=== PATIENT | female | born 1945 | race Caucasian/White ===

== ENCOUNTER 2022-10-29 11:07 | Outpatient (AMB) | payer MEDICARE, SELFPAY ==
--- NOTE | 2022-10-29 11:26 | MHC.OFFVIS ---
Intake Vital Signs 10/29/22 11:32 Height 4 ft 11 in Weight 152 lb 2 oz BMI 30.7 BP 120/62 Blood Pressure Location Rt brachial Position Sitting Pulse 56 Pulse Source Pulse Oximeter Pulse Oximetry (%) 96 Oxygen Delivery Method Room Air Intake Visit Reasons: [id number] Intake Note: NPV for Dementia Care Program Resident Required: No Allergies celecoxib [From Celebrex] Allergy (Severe, Verified 10/29/22 11:26) Rash codeine Allergy (Severe, Verified 10/29/22 11:26) sternal pain hydromorphone [From Dilaudid] Allergy (Severe, Verified 10/29/22 11:26) Hallucinations Medication List - Last Reconciled 10/29/22 by Angie Eden MD allopurinol 300 mg PO DAILY atenolol 50 mg PO DAILY colestipol 2 grams PO DAILY donepezil 10 mg PO BEDTIME furosemide 20 mg PO DAILY losartan 50 mg PO DAILY memantine 5 mg PO BID memantine (Namenda XR) 14 mg PO DAILY metformin 0 mg PO sertraline 25 mg PO DAILY simvastatin 20 mg PO BEDTIME vitamin B complex (B Complex-Vitamin B12 tablet) 1 tab PO DAILY HPI HPI Comments History of Present Illness Details 77y/o female comes for evaluation of cognitive disorder.She is accompanied by ehr who helps with history . ABout 1 year ago her family started noticing short term memory problems. she often repeats herself, confused with dates , always looking for her stuff in her house, misplacing.she is independent in all her ADLs. Her memory is worsening progressively.Her driving is OK. SHe denies any mood disorder, sleep issues. she had a fall 2 months ago in the backyard - no loss of consciousness. she is doing OK . she goes to nondenominational everyday, does grocery shopping, takes acre of the house etc. [facility] Medical History (Updated 10/29/22 @ 12:48 by Angie Eden MD) Arthritis B12 deficiency Cognitive disorder Constipation Diabetes Gout HTN (hypertension) Hyperlipidemia Hypokalemia LBBB (left bundle branch block) Surgical History (Updated 10/21/22 @ 13:47 by KAYE Mae) H/O section H/O shoulder replacement H/O: hysterectomy History of colonoscopy History of knee replacement Hx of cholecystectomy Family History (Updated 10/21/22 @ 13:41 by KAYE Mae) Mother Cognitive deficit as late effect of cerebrovascular accident (CVA) Father Diabetes Social History (Updated 10/29/22 @ 11:32 by Ghislaine Rivera [facility]) Alcohol intake: current Patient Tobacco Use Status: Former Tobacco user Review of Systems Const Reports no additional complaints Neuro Reports memory loss Psych Reports memory loss Physical Exam Const General: cooperative and healthy appearing Nutritional Appearance: overweight Eyes Pupils: Equal, round and reactive pupils present Neuro General: tone normal, moves all extremities and no focal motor deficits Cranial nerves: Yes Facial sensation intact/muscles of mastication intact, Yes Equal, round and reactive pupils present, Yes Bilaterally intact EOM present, Yes Nystagmus not present, Yes Normal facial strength present, Yes Midline tongue present and Yes Symmetric palate elevation present Gait exam (Neuro): Antalgic gait present Motor exam (neuro): 5/5 motor strength present throughout and Normal motor muscle tone present throughout Deep tendon reflexes (DTR's): Right triceps reflex intensity grade: 1+, Left triceps reflex intensity grade: 1+, Rt Biceps (C5, C6): 1+, Left biceps reflex intensity grade: 1+, Right brachioradialis reflex intensity grade: 1+, Left brachioradialis reflex intensity grade: 1+, Right patellar reflex intensity grade: 1+ and Left patellar reflex intensity grade: 1+ Coordination: [id number] test normal Orientation What is the (year) (season) (date) (day) (month)?: season, day and month Where are we (state) (county) (town or city) (hospital) (floor)?: state, county, town or city and hospital/clinic Registration Name of 3 unrelated objects clearly and slowly, then ask patient to repeat all 3 of them. (1st repeat determines score. Make sure they can repeat all three): object 1, object 2 and object 3 Attention & Calculation (CHOOSE ONE) Spell WORLD backwards (DLROW): 5 letters Recall Ask patient to repeat the 3 items from question #3.: object 1 and object 2 Language Show patient a wristwatch & ask what it is. Repeat for pencil.: watch and pencil Ask the patient to repeat the phrase 'No ifs, ands, or buts' after you.: correct Ask the patient to 'take a piece of paper with their right hand' 'fold paper in half' 'place paper on floor': take paper in right hand, fold paper in half and place paper on floor Print the sentence 'CLOSE YOUR EYES' on a piece. If patient actually closes eyes then score.: followed written direction Give patient a blank piece of paper & ask to write a sentence. Score if it contains a noun & verb.: sentence contains subject and verb Ask patient to copy figure of intersecting pentagons exactly. Score if all 10 angles & 2 intersects are included.: all 10 angles present & 2 are intersected Score Score: 26 Assessment & Plan Assessment & Plan (1) Cognitive disorder: Comment: Mild cognitive impairment vs Dementia Code(s): F09 - Unspecified mental disorder due to known physiological condition Plan Reviewed MRI report Continue aricept 10mg qd Switch to memantine XR 14 mg qd Increase exercise and cognitive activity Medications: New memantine (Namenda XR) 14 mg PO DAILY 30 ea 2RF Coding Level of Care Code New Pt Level 4 (00698) Diagnoses Cognitive disorder F09
[2022-10-29 11:32] VITALS: BP 120/62; PULSE 56; O2SAT 96; BMI 30.7
== END 2022-10-29 12:09 | disposition home or self-care (01) ==
PROVIDERS: Visit Provider Psychiatry & Neurology Neurology
DX: G31.84 Mild cognitive impairment of uncertain or unknown etiology (principal)
CPT/HCPCS: 99204

== ENCOUNTER → 2022-10-29 11:07 | Outpatient (BNVA) | payer MEDICARE, SELFPAY | PROVIDERS: Visit Provider Psychiatry & Neurology Neurology | DX: F09 Unspecified mental disorder due to known physiological condition (principal) | CPT/HCPCS: 99202 ==

== ENCOUNTER 2023-02-09 10:56 | Outpatient (AMB) | payer MEDICARE, SELFPAY ==
--- NOTE | 2023-02-09 11:04 | A.OFFVIS_ITS ---
Intake Vital Signs 02/09/23 11:05 Height 4 ft 11 in Weight 155 lb BMI 31.3 BP 146/72 H Blood Pressure Location Rt brachial Position Sitting Respiration 17 Pulse 75 Pulse Source Pulse Oximeter Pulse Oximetry (%) 96 Oxygen Delivery Method Room Air Intake Visit Reasons: 3m follow up DEMENTIA/Confirmed Intake Note: Pt presents for a 3 month follow up for dementia. Assistant Buyer Required: No Allergies celecoxib [From Celebrex] Allergy (Severe, Verified 02/09/23 11:05) Rash codeine Allergy (Severe, Verified 02/09/23 11:05) sternal pain hydromorphone [From Dilaudid] Allergy (Severe, Verified 02/09/23 11:05) Hallucinations Medication List - Last Reconciled 02/09/23 by Angie Eden MD allopurinol 300 mg PO DAILY atenolol 50 mg PO DAILY colestipol 2 grams PO DAILY donepezil 10 mg PO BEDTIME losartan 50 mg PO DAILY memantine 10 mg PO BID 90 days metformin 0 mg PO sertraline 25 mg PO DAILY simvastatin 20 mg PO BEDTIME vitamin B complex (B Complex-Vitamin B12 tablet) 1 tab PO DAILY [facility] Medical History (Updated 02/09/23 @ 11:29 by Angie Eden MD) Alzheimer's dementia Cognitive disorder Hypokalemia LBBB (left bundle branch block) Arthritis Hyperlipidemia HTN (hypertension) Gout Diabetes Constipation B12 deficiency Surgical History H/O shoulder replacement H/O section Hx of cholecystectomy History of knee replacement H/O: hysterectomy History of colonoscopy Family History Mother Cognitive deficit as late effect of cerebrovascular accident (CVA) Father Diabetes Alcohol intake: current Patient Tobacco Use Status: Former Tobacco user Physical Exam Vital Signs: Last Vital Signs Pulse 75 02/09/23 11:05 Resp 17 02/09/23 11:05 BP 146/72 H 02/09/23 11:05 Pulse Ox 96 02/09/23 11:05 Oxygen Delivery Method Room Air 02/09/23 11:05 BMI result Body Mass Index 31.3 Const General: cooperative and healthy appearing Nutritional Appearance: overweight Eyes Pupils: Equal, round and reactive pupils present Neuro General: tone normal, moves all extremities and no focal motor deficits Cranial nerves: Yes Facial sensation intact/muscles of mastication intact, Yes Equal, round and reactive pupils present, Yes Bilaterally intact EOM present, Yes Nystagmus not present, Yes Normal facial strength present, Yes Midline tongue present and Yes Symmetric palate elevation present Gait exam (Neuro): Antalgic gait present Motor exam (neuro): 5/5 motor strength present throughout and Normal motor muscle tone present throughout Coordination: [id number] test normal Orientation What is the (year) (season) (date) (day) (month)?: season and month Where are we (state) (county) (town or city) (hospital) (floor)?: state, town or city, hospital/clinic and floor Registration Name of 3 unrelated objects clearly and slowly, then ask patient to repeat all 3 of them. (1st repeat determines score. Make sure they can repeat all three): object 1, object 2 and object 3 Attention & Calculation (CHOOSE ONE) Spell WORLD backwards (DLROW): 4 letters Language Show patient a wristwatch & ask what it is. Repeat for pencil.: watch and pencil Ask the patient to repeat the phrase 'No ifs, ands, or buts' after you.: correct Ask the patient to 'take a piece of paper with their right hand' 'fold paper in half' 'place paper on floor': take paper in right hand, fold paper in half and place paper on floor Print the sentence 'CLOSE YOUR EYES' on a piece. If patient actually closes eyes then score.: followed written direction Give patient a blank piece of paper & ask to write a sentence. Score if it contains a noun & verb.: sentence contains subject and verb Ask patient to copy figure of intersecting pentagons exactly. Score if all 10 angles & 2 intersects are included.: all 10 angles present & 2 are intersected Score Score: 22 Assessment & Plan Assessment & Plan (1) Alzheimer's dementia: Code(s): G30.9 - Alzheimer's disease, unspecified; F02.80 - Dementia in other diseases classified elsewhere, unspecified severity, without behavioral disturbance, psychotic disturbance, mood disturbance, and anxiety Plan Continue aricept 10mg qd Continue Memantine 10mg bid Increase exercise and cognitive activity Amyloid PET ? Consider [facility] Coding Level of Care Code Est Pt Level 4 (44088) Diagnoses Alzheimer's dementia G30.9; F02.80
[2023-02-09 11:05] VITALS: BP 146/72; PULSE 75; RESP 17; O2SAT 96; BMI 31.3
== END 2023-02-09 11:40 | disposition home or self-care (01) ==
PROVIDERS: PCP Family Medicine; Visit Provider Psychiatry & Neurology Neurology
DX: G30.9 Alzheimer's disease, unspecified (principal); F02.80 Dementia in other diseases classified elsewhere, unspecified severity, without behavioral disturbance, psychotic disturbance, mood disturbance, and anxiety
CPT/HCPCS: 99214

== ENCOUNTER → 2023-02-09 10:56 | Outpatient (BNVA) | payer MEDICARE, SELFPAY | PROVIDERS: PCP Family Medicine; Visit Provider Psychiatry & Neurology Neurology | DX: G30.9 Alzheimer's disease, unspecified (principal); F02.80 Dementia in other diseases classified elsewhere, unspecified severity, without behavioral disturbance, psychotic disturbance, mood disturbance, and anxiety | CPT/HCPCS: 99212 ==

== ENCOUNTER 2023-06-10 07:35 | Outpatient (AMB) | payer MEDICARE, SELFPAY ==
--- NOTE | 2023-06-10 07:37 | A.OFFVIS_ITS ---
Intake Vital Signs 06/10/23 07:38 Height 4 ft 11 in Weight 150 lb BMI 30.3 BP 128/68 Blood Pressure Location Rt brachial Position Sitting Respiration 16 Pulse 59 Pulse Source Pulse Oximeter Pulse Oximetry (%) 99 Oxygen Delivery Method Room Air Intake Visit Reasons: 4 mo f/u -Dementia-Conf Intake Note: Pt presents to the office for a 4 month follow up for Alzheimer's/ dementia. Coping Machine Operator Required: No Allergies celecoxib [From Celebrex] Allergy (Severe, Verified 06/10/23 07:37) Rash codeine Allergy (Severe, Verified 06/10/23 07:37) sternal pain hydromorphone [From Dilaudid] Allergy (Severe, Verified 06/10/23 07:37) Hallucinations HPI HPI Comments History of Present Illness Details 77y/o female comes for evaluation of cog nitive disorder.She is accompanied by her who helps with history .No major change since her last visit. ABout 18 months ago her family started noticing short term memory problems. she often repeats herself, confused with dates , always looking for her stuff in her house, misplacing.she is independent in all her ADLs. Her memory is worsening progressively.Her driving is OK. SHe denies any mood disorder, sleep issues.No falls. she goes to [employer] everyday, does grocery shopping, takes care of the house etc. [facility], [facility] Medical History Alzheimer's dementia Cognitive disorder Hypokalemia LBBB (left bundle branch block) Arthritis Hyperlipidemia HTN (hypertension) Gout Diabetes Constipation B12 deficiency Surgical History H/O shoulder replacement H/O section Hx of cholecystectomy History of knee replacement H/O: hysterectomy History of colonoscopy Family History Mother Cognitive deficit as late effect of cerebrovascular accident (CVA) Father Diabetes Social History Alcohol intake: current Patient Tobacco Use Status: Former Tobacco user Physical Exam Vital Signs: Last Vital Signs Pulse 59 06/10/23 07:38 Resp 16 06/10/23 07:38 BP 128/68 06/10/23 07:38 Pulse Ox 99 06/10/23 07:38 Oxygen Delivery Method Room Air 06/10/23 07:38 BMI result Body Mass Index 30.3 Const General: cooperative and healthy appearing Nutritional Appearance: overweight Eyes Pupils: Equal, round and reactive pupils present Neuro General: tone normal, moves all extremities and no focal motor deficits Cranial nerves: Yes Facial sensation intact/muscles of mastication intact, Yes Equal, round and reactive pupils present, Yes Bilaterally intact EOM present, Yes Nystagmus not present, Yes Normal facial strength present, Yes Midline tongue present and Yes Symmetric palate elevation present Gait exam (Neuro): Antalgic gait present Motor exam (neuro): 5/5 motor strength present throughout and Normal motor muscle tone present throughout Coordination: [id number] test normal Orientation What is the (year) (season) (date) (day) (month)?: year and season Where are we (state) (county) (town or city) (hospital) (floor)?: state, county, town or city, hospital/clinic and floor Registration Name of 3 unrelated objects clearly and slowly, then ask patient to repeat all 3 of them. (1st repeat determines score. Make sure they can repeat all three): object 1, object 2 and object 3 Attention & Calculation (CHOOSE ONE) Spell WORLD backwards (DLROW): 4 letters Recall Ask patient to repeat the 3 items from question #3.: object 1 and object 2 Language Show patient a wristwatch & ask what it is. Repeat for pencil.: watch and pencil Ask the patient to repeat the phrase 'No ifs, ands, or buts' after you.: correct Ask the patient to 'take a piece of paper with their right hand' 'fold paper in half' 'place paper on floor': take paper in right hand, fold paper in half and place paper on floor Print the sentence 'CLOSE YOUR EYES' on a piece. If patient actually closes eyes then score.: followed written direction Ask patient to copy figure of intersecting pentagons exactly. Score if all 10 angles & 2 intersects are included.: all 10 angles present & 2 are intersected Score Score: 24 Assessment & Plan Assessment & Plan (1) Alzheimer's dementia: Code(s): G30.9 - Alzheimer's disease, unspecified; F02.80 - Dementia in other diseases classified elsewhere, unspecified severity, without behavioral disturbance, psychotic disturbance, mood disturbance, and anxiety Plan Continue aricept 10mg qd Continue Memantine 10mg bid Increase exercise and cognitive activity Amyloid PET ? Consider [facility] Medications: New donepezil 10 mg PO BEDTIME 90 tabs 6RF sertraline 25 mg PO DAILY 90 tabs 6RF Refilled memantine 10 mg PO BID 90 days 180 tabs 6RF Coding Level of Care Code Est Pt Level 4 (39911) Diagnoses Alzheimer's dementia G30.9; F02.80
[2023-06-10 07:38] VITALS: BP 128/68; PULSE 59; RESP 16; O2SAT 99; BMI 30.3
== END 2023-06-10 08:07 | disposition home or self-care (01) ==
PROVIDERS: PCP Family Medicine; Visit Provider Psychiatry & Neurology Neurology
DX: G30.9 Alzheimer's disease, unspecified (principal); F02.80 Dementia in other diseases classified elsewhere, unspecified severity, without behavioral disturbance, psychotic disturbance, mood disturbance, and anxiety
CPT/HCPCS: 99214

== ENCOUNTER → 2023-06-10 07:35 | Outpatient (BNVA) | payer MEDICARE, SELFPAY | PROVIDERS: PCP Family Medicine; Visit Provider Psychiatry & Neurology Neurology | DX: G30.9 Alzheimer's disease, unspecified (principal); F02.80 Dementia in other diseases classified elsewhere, unspecified severity, without behavioral disturbance, psychotic disturbance, mood disturbance, and anxiety | CPT/HCPCS: 99212 ==

== ENCOUNTER 2023-09-27 05:48 | Day surgery (SDC) | payer MEDICARE, SELFPAY ==
[2023-09-22 08:21] VITALS: BMI 29.4
[2023-09-27 06:08] VITALS: BP 155/43; PULSE 51; RESP 16; TEMP 36.4; O2SAT 97
[2023-09-27 06:14] LABS: Glucose, Whole Blood 94 mg/dL (60-115)
[2023-09-27] MEDS: Tetracaine HCl/PF 0.5% Oph Sol 4 ML DROPS 1 DROP EYE-LEFT (06:14)
[2023-09-27] MEDS: Cyclopentolate 1 % Ophth Sol 2 ML DRPBTL 1 DROP EYE-LEFT ×3 (06:15→06:27)
[2023-09-27] MEDS: Tropicamide 1 % Ophth Sol 3 ML BTL 1 DROP EYE-LEFT ×3 (06:17→06:29)
[2023-09-27] MEDS: Phenylephrine HCL 2.5% Oph SoL 2 ML BOTTLE 1 DROP EYE-LEFT ×3 (06:19→06:31)
[2023-09-27] MEDS: Lactated Ringers 500 ML 50 ML IV (06:38)
[2023-09-27] MEDS: Ketorolac Tromethamine 0.5% Op 10 ML DROPS 1 DROP EYE-LEFT ×3 (07:11→07:15)
--- NOTE | 2023-09-27 07:15 | HO.ANESPROP2 ---
Documented by User: Jessica Bella NP 09/24/23 12:10 HPI - Anesthesia Eval Consult details Narrative: 78yo F for Left Cataract Extraction IOL Insertion No previous cataract on record PMFSH Active Problems Active Problems: All Active Problems Alzheimer's dementia (Acute) Cognitive disorder (Acute) LBBB (left bundle branch block) (Acute) Arthritis (Acute) Hyperlipidemia (Acute) HTN (hypertension) (Acute) Gout (Acute) Diabetes (Acute) Constipation (Acute) B12 deficiency (Acute) Past Medical History Medical History (Updated 09/22/23 @ 08:19 by Darlene Freed RN) Weight loss Shoulder pain Pain in thoracic spine Osteoarthritis Leg pain, left Depression Iron deficiency anemia Hypercholesteremia COVID-19 Hx of fracture Edema of right lower leg Dementia Anemia Alzheimer's dementia Cognitive disorder Hypokalemia LBBB (left bundle branch block) Arthritis Hyperlipidemia HTN (hypertension) Gout Diabetes Constipation B12 deficiency Family History Family History Mother Cognitive deficit as late effect of cerebrovascular accident (CVA) Father Diabetes Surgical History Surgical History H/O shoulder replacement H/O section Hx of cholecystectomy History of knee replacement H/O: hysterectomy History of colonoscopy Social History Social History Are you a primary wound care center consultant to a significant other at home: No Do you presently have visiting nurse or other home services: No Alcohol intake: current Alcohol intake frequency: holidays/special occasions only Patient Tobacco Use Status: Former Tobacco user Use of substances other than those prescribed or required for medical reasons: No Advance Directives: No Advance Directives Information Provided: Yes Advance Directives on File: No Nutrition Risks: No Nutritional Risk Patient : No : No Meds Allergies Allergy/AdvReac Type Severity Reaction Status Date / Time celecoxib [From Celebrex] Allergy Severe Rash, Verified 09/27/23 06:40 throat closed codeine Allergy Severe sternal Verified 09/27/23 06:08 pain hydromorphone [From Dilaudid] Allergy Severe Hallucinati Verified 09/27/23 06:08 ons latex Allergy Severe Rash Verified 09/27/23 06:08 Home Medications ?Medication ?Instructions ?Recorded ?Confirmed ?Last Taken ?Type allopurinol 300 mg tablet 300 mg PO DAILY 10/29/22 09/22/23 09/27/23 History atenolol 50 mg tablet 50 mg PO DAILY 10/29/22 09/22/23 09/27/23 History losartan 50 mg tablet 50 mg PO DAILY 10/29/22 09/22/23 Unknown History metformin 500 mg tablet 0 mg PO 10/29/22 02/09/23 Unknown History simvastatin 20 mg tablet 20 mg PO BEDTIME 10/29/22 09/22/23 Unknown History aspirin 81 mg tablet,delayed 81 mg PO DAILY 09/22/23 09/22/23 09/27/23 History release cetirizine 10 mg tablet (Zyrtec) 10 mg PO DAILY 09/22/23 09/22/23 Unknown History cyanocobalamin (vitamin B-12) 1,000 mcg PO DAILY 09/22/23 09/22/23 Unknown History 1,000 mcg tablet (Vitamin B-12) loperamide 2 mg-simethicone 125 mg 1 tab PO Q6-8H PRN Diarrhea 09/22/23 09/22/23 Unknown History tablet (Imodium Multi-Symptom Relief) memantine 10 mg tablet 10 mg PO DAILY 09/22/23 09/22/23 09/27/23 History Exam Height,Weight and Vital Signs: Height 4 ft 11.96 in Weight 68.1 kg Assessment and Plan Assessment Anesthesia Assessment: Chart Reviewed Documented by User: Tiara Romero DO 09/27/23 07:16 [facility] Past Medical History Medical History (Updated 09/22/23 @ 08:19 by Darlene Freed RN) Weight loss Shoulder pain Pain in thoracic spine Osteoarthritis Leg pain, left Depression Iron deficiency anemia Hypercholesteremia COVID-19 Hx of fracture Edema of right lower leg Dementia Anemia Alzheimer's dementia Cognitive disorder Hypokalemia LBBB (left bundle branch block) Arthritis Hyperlipidemia HTN (hypertension) Gout Diabetes Constipation B12 deficiency Family History Family History Mother Cognitive deficit as late effect of cerebrovascular accident (CVA) Father Diabetes Family history of problems with anesthesia: No Surgical History Surgical History H/O shoulder replacement H/O section Hx of cholecystectomy History of knee replacement H/O: hysterectomy History of colonoscopy History of Problems with Anesthesia: No Social History Social History Are you a primary wound care center consultant to a significant other at home: No Do you presently have visiting nurse or other home services: No Alcohol intake: current Alcohol intake frequency: holidays/special occasions only Patient Tobacco Use Status: Former Tobacco user Use of substances other than those prescribed or required for medical reasons: No Advance Directives: No Advance Directives Information Provided: Yes Advance Directives on File: No Nutrition Risks: No Nutritional Risk Patient : No : No Meds Allergies Allergy/AdvReac Type Severity Reaction Status Date / Time celecoxib [From Celebrex] Allergy Severe Rash, Verified 09/27/23 06:40 throat closed codeine Allergy Severe sternal Verified 09/27/23 06:08 pain hydromorphone [From Dilaudid] Allergy Severe Hallucinati Verified 09/27/23 06:08 ons latex Allergy Severe Rash Verified 09/27/23 06:08 Home Medications ?Medication ?Instructions ?Recorded ?Confirmed ?Last Taken ?Type allopurinol 300 mg tablet 300 mg PO DAILY 10/29/22 09/22/23 09/27/23 History atenolol 50 mg tablet 50 mg PO DAILY 10/29/22 09/22/23 09/27/23 History losartan 50 mg tablet 50 mg PO DAILY 10/29/22 09/22/23 Unknown History metformin 500 mg tablet 0 mg PO 10/29/22 02/09/23 Unknown History simvastatin 20 mg tablet 20 mg PO BEDTIME 10/29/22 09/22/23 Unknown History aspirin 81 mg tablet,delayed 81 mg PO DAILY 09/22/23 09/22/23 09/27/23 History release cetirizine 10 mg tablet (Zyrtec) 10 mg PO DAILY 09/22/23 09/22/23 Unknown History cyanocobalamin (vitamin B-12) 1,000 mcg PO DAILY 09/22/23 09/22/23 Unknown History 1,000 mcg tablet (Vitamin B-12) loperamide 2 mg-simethicone 125 mg 1 tab PO Q6-8H PRN Diarrhea 09/22/23 09/22/23 Unknown History tablet (Imodium Multi-Symptom Relief) memantine 10 mg tablet 10 mg PO DAILY 09/22/23 09/22/23 09/27/23 History Exam Exam Date and Time: September 27, 2023711 Height,Weight and Vital Signs: Height 4 ft 11.96 in Weight 68.1 kg Vital Signs Temperature 97.5 F 09/27/23 06:08 Pulse Rate 51 09/27/23 06:08 Respiratory Rate 16 09/27/23 06:08 Blood Pressure 155/43 H 09/27/23 06:08 Pulse Oximetry 97 09/27/23 06:08 Oxygen Delivery Method Room Air 09/27/23 06:08 Temperature 97.5 F 09/27/23 06:08 Pulse Rate 51 09/27/23 06:08 Respiratory Rate 16 09/27/23 06:08 Blood Pressure 155/43 H 09/27/23 06:08 Pulse Oximetry 97 09/27/23 06:08 Oxygen Delivery Method Room Air 09/27/23 06:08 Airway Mallampati Class: I TM Dist: >3cm Neck ROM: Full Loose/Missing/Broken Teeth: Yes (several missing teeth but patient denies any loose or broken teeth) Heart: S1S2 Lungs: CTAB Assessment and Plan Assessment Anesthesia Assessment: Anesthesia Plan Discussed and Chart Reviewed Final Anesthetic Review Family History of Problems with Anesthesia: No History of Problems with Anesthesia: No NPO: Yes ASA Class: III Final Preanesthetic Review: No Changes in Pt Med Stat, Meds/Allgs Chart Reviewed, Consent Obtained/Reviewed and Anes Risks/Benef Reviewed Patient Risk: Intermediate Procedure Risk: Low Anesthetic Plan Anesthetic Plan: MAC: and Agree w/ Assess. and Plan Disposition: Standard PACU
--- NOTE | 2023-09-27 07:30 | MHC.SHP ---
Pre-Procedural Eval Section A - 24 Hr Update-Section A only Date of Service: 09/27/23 The patient is an INPATIENT: No Changes since office visit: No Cold of Flu in the past 2 weeks, No New Medical Problems, No Changes in Medication and No Patient answered all questions The patient has been examined within 24 hours of the surgical procedure. The History & Physical has been completed within 30 days and I have reviewed it.: Yes Section B - Complete if H&P > 30 days Chief Complaint: Age-related nuclear cataract, left eye Allergies: Allergies Allergy/AdvReac Type Severity Reaction Status Date / Time celecoxib [From Celebrex] Allergy Severe Rash, Verified 09/27/23 06:40 throat closed codeine Allergy Severe sternal Verified 09/27/23 06:08 pain hydromorphone [From Dilaudid] Allergy Severe Hallucinati Verified 09/27/23 06:08 ons latex Allergy Severe Rash Verified 09/27/23 06:08 Plan Diagnosis/Plan: Unchanged I have reviewed the history and physical and performed a pertinent physical examination on my patient. No changes have occurred unless specified. Time Spent With Patient Time: Total time managing care of this patient today ____ minutes.
--- NOTE | 2023-09-27 07:31 | HO.PNOPHT ---
Ophthalmology Procedure Procedure Date of Service: 09/27/23 Ophthalmology Viscoelastic: Healon Duet Dual Pack Pro Ophthalmology Lenses: IOL Acrysof MP - MA60AC (17.5) Procedure Notes: PREOPERATIVE DIAGNOSIS: Decreased visual acuity left eye secondary to cataract POSTOPERATIVE DIAGNOSIS: Same PROCEDURE: Left cataract extraction with intraocular lens insertion SURGEON: Chadwick Johnson M.D. ANESTHESIA: Topical/MAC ESTIMATED BLOOD LOSS: None COMPLICATIONS: None After obtaining informed consent, the patient was brought to the operation room suite and placed in the supine position. After adequate sedation per anesthesia, topical drops of Tetracaine were given to the left eye. The eye was then prepped and draped in the usual sterile fashion. The operating room microscope was then positioned over the operative eye and a lid speculum placed. A paracentesis was created. Viscoelastic was then instilled into the anterior chamber. A three plane incision was then created temporally, utilizing a 2.85 mm keratome. Capsulotomy forceps were then utilized to create a circular tear capsulotomy. Hydrodissection and hydrodelineation were carried out until adequate mobilization of the nucleus occurred. Phacoemulsification was then utilized to remove the dense central nucleus followed by removal of the cortical material utilizing the automated aspiration irrigation unit. Viscoat elastic was instilled into the posterior capsular bag followed by placement of a posterior chamber intraocular lens without difficulty. The residual Viscoat elastic was then removed utilizing the automated IA machine. The wound was check and found to be watertight. The patient tolerated the procedure well and the lid speculum was removed. Intracameral injection of Vigamox 0.1 mL followed by a subtenon injection of Kenalog-40 0.2 mL were administered. The patient will be seen in the a.m.
[2023-09-27 08:00] VITALS: BP 126/42; PULSE 42; RESP 16; TEMP 36.1; O2SAT 97
== END 2023-09-27 08:47 | disposition home or self-care (01) ==
PROVIDERS: PCP Family Medicine; Visit Provider Ophthalmology
PROC: (CPT 66985; principal; 2023-09-27 07:30)
DX: H25.12 Age-related nuclear cataract, left eye (principal); H54.7 Unspecified visual loss; H40.013 Open angle with borderline findings, low risk, bilateral; H18.413 Arcus senilis, bilateral; E11.9 Type 2 diabetes mellitus without complications; I10 Essential (primary) hypertension; I78.1 Nevus, non-neoplastic; E78.00 Pure hypercholesterolemia, unspecified; M10.9 Gout, unspecified; G30.9 Alzheimer's disease, unspecified; F02.80 Dementia in other diseases classified elsewhere, unspecified severity, without behavioral disturbance, psychotic disturbance, mood disturbance, and anxiety; D50.9 Iron deficiency anemia, unspecified; D51.3 Other dietary vitamin B12 deficiency anemia; Z79.82 Long term (current) use of aspirin; Z79.84 Long term (current) use of oral hypoglycemic drugs; Z79.899 Other long term (current) drug therapy; Z88.5 Allergy status to narcotic agent; Z88.8 Allergy status to other drugs, medicaments and biological substances; Z91.040 Latex allergy status; Z87.891 Personal history of nicotine dependence; Z98.890 Other specified postprocedural states
CPT/HCPCS: 66984; 82947; J3010; J3301; V2630

== ENCOUNTER 2023-10-11 06:31 | Day surgery (SDC) | payer MEDICARE, SELFPAY ==
[2023-09-22 08:31] VITALS: BMI 29.4
--- NOTE | 2023-10-07 12:46 | P.CONAN_ITS ---
Documented by User: Jessica Bella NP 10/07/23 12:46 HPI - Anesthesia Eval Consult details Narrative: 78yo F for LEFT Cataract Extraction IOL EXCHANGE,RIGHT Cataract Extraction IOL Insertion Left cataract 09/27/23: Fent 50 PMFSH Active Problems Active Problems: All Active Problems Alzheimer's dementia (Acute) Cognitive disorder (Acute) LBBB (left bundle branch block) (Acute) Arthritis (Acute) Hyperlipidemia (Acute) HTN (hypertension) (Acute) Gout (Acute) Diabetes (Acute) Constipation (Acute) B12 deficiency (Acute) Past Medical History Medical History Weight loss Shoulder pain Pain in thoracic spine Osteoarthritis Leg pain, left Depression Iron deficiency anemia Hypercholesteremia COVID-19 Hx of fracture Edema of right lower leg Dementia Anemia Alzheimer's dementia Cognitive disorder Hypokalemia LBBB (left bundle branch block) Arthritis Hyperlipidemia HTN (hypertension) Gout Diabetes Constipation B12 deficiency Family History Family History Mother Cognitive deficit as late effect of cerebrovascular accident (CVA) Father Diabetes Family history of problems with anesthesia: No Surgical History Surgical History H/O shoulder replacement H/O section Hx of cholecystectomy History of knee replacement H/O: hysterectomy History of colonoscopy History of Problems with Anesthesia: No Social History Social History Are you a primary dialysis patient care technician to a significant other at home: No Do you presently have visiting nurse or other home services: No Alcohol intake: current Alcohol intake frequency: holidays/special occasions only Patient Tobacco Use Status: Former Tobacco user Use of substances other than those prescribed or required for medical reasons: No Advance Directives: No Advance Directives Information Provided: Yes Advance Directives on File: No Recently lost weight without trying: No Nutrition Risks: No Nutritional Risk Patient : No : No Meds Allergies Allergy/AdvReac Type Severity Reaction Status Date / Time celecoxib [From Celebrex] Allergy Severe Rash, Verified 10/11/23 07:43 throat closed codeine Allergy Severe sternal Verified 10/11/23 07:43 pain hydromorphone [From Dilaudid] Allergy Severe Hallucinati Verified 10/11/23 07:43 ons latex Allergy Severe Rash Verified 10/11/23 07:43 Home Medications ?Medication ?Instructions ?Recorded ?Confirmed ?Last Taken ?Type allopurinol 300 mg tablet 300 mg PO DAILY 10/29/22 09/22/23 09/27/23 History atenolol 50 mg tablet 50 mg PO DAILY 10/29/22 09/22/23 09/27/23 History losartan 50 mg tablet 50 mg PO DAILY 10/29/22 09/22/23 Unknown History metformin 500 mg tablet 0 mg PO 10/29/22 02/09/23 Unknown History simvastatin 20 mg tablet 20 mg PO BEDTIME 10/29/22 09/22/23 Unknown History aspirin 81 mg tablet,delayed 81 mg PO DAILY 09/22/23 09/22/23 09/27/23 History release cetirizine 10 mg tablet (Zyrtec) 10 mg PO DAILY 09/22/23 09/22/23 Unknown History cyanocobalamin (vitamin B-12) 1,000 mcg PO DAILY 09/22/23 09/22/23 Unknown History 1,000 mcg tablet (Vitamin B-12) loperamide 2 mg-simethicone 125 mg 1 tab PO Q6-8H PRN Diarrhea 09/22/23 09/22/23 Unknown History tablet (Imodium Multi-Symptom Relief) Exam Height,Weight and Vital Signs: Height 4 ft 11.96 in Weight 68.1 kg Assessment and Plan Assessment Anesthesia Assessment: Chart Reviewed Final Anesthetic Review Family History of Problems with Anesthesia: No History of Problems with Anesthesia: No Documented by User: Estelle Rowe MD 10/11/23 07:47 PMFSH Past Medical History Medical History Weight loss Shoulder pain Pain in thoracic spine Osteoarthritis Leg pain, left Depression Iron deficiency anemia Hypercholesteremia COVID-19 Hx of fracture Edema of right lower leg Dementia Anemia Alzheimer's dementia Cognitive disorder Hypokalemia LBBB (left bundle branch block) Arthritis Hyperlipidemia HTN (hypertension) Gout Diabetes Constipation B12 deficiency Family History Family History Mother Cognitive deficit as late effect of cerebrovascular accident (CVA) Father Diabetes Surgical History Surgical History H/O shoulder replacement H/O section Hx of cholecystectomy History of knee replacement H/O: hysterectomy History of colonoscopy Social History Social History Are you a primary dialysis patient care technician to a significant other at home: No Do you presently have visiting nurse or other home services: No Alcohol intake: current Alcohol intake frequency: holidays/special occasions only Patient Tobacco Use Status: Former Tobacco user Use of substances other than those prescribed or required for medical reasons: No Advance Directives: No Advance Directives Information Provided: Yes Advance Directives on File: No Recently lost weight without trying: No Nutrition Risks: No Nutritional Risk Patient : No : No Meds Allergies Allergy/AdvReac Type Severity Reaction Status Date / Time celecoxib [From Celebrex] Allergy Severe Rash, Verified 10/11/23 07:43 throat closed codeine Allergy Severe sternal Verified 10/11/23 07:43 pain hydromorphone [From Dilaudid] Allergy Severe Hallucinati Verified 10/11/23 07:43 ons latex Allergy Severe Rash Verified 10/11/23 07:43 Home Medications ?Medication ?Instructions ?Recorded ?Confirmed ?Last Taken ?Type allopurinol 300 mg tablet 300 mg PO DAILY 10/29/22 09/22/23 09/27/23 History atenolol 50 mg tablet 50 mg PO DAILY 10/29/22 09/22/23 09/27/23 History losartan 50 mg tablet 50 mg PO DAILY 10/29/22 09/22/23 Unknown History metformin 500 mg tablet 0 mg PO 10/29/22 02/09/23 Unknown History simvastatin 20 mg tablet 20 mg PO BEDTIME 10/29/22 09/22/23 Unknown History aspirin 81 mg tablet,delayed 81 mg PO DAILY 07/01/0509/22/23 09/27/23 History release cetirizine 10 mg tablet (Zyrtec) 10 mg PO DAILY 09/22/23 09/22/23 Unknown History cyanocobalamin (vitamin B-12) 1,000 mcg PO DAILY 09/22/23 09/22/23 Unknown History 1,000 mcg tablet (Vitamin B-12) loperamide 2 mg-simethicone 125 mg 1 tab PO Q6-8H PRN Diarrhea 09/22/23 09/22/23 Unknown History tablet (Imodium Multi-Symptom Relief) Exam Airway Mallampati Class: II TM Dist: >3cm Neck ROM: Limited Heart: rrr Lungs: cta Assessment and Plan Assessment Anesthesia Assessment: Anesthesia Plan Discussed Final Anesthetic Review NPO: Yes ASA Class: III Final Preanesthetic Review: No Changes in Pt Med Stat, Meds/Allgs Chart Reviewed, Consent Obtained/Reviewed and Anes Risks/Benef Reviewed Patient Risk: Intermediate Procedure Risk: Low Anesthetic Plan Anesthetic Plan: MAC: Disposition: Standard PACU
[2023-10-11 06:58] VITALS: BP 149/45; PULSE 54; RESP 18; TEMP 36.1; O2SAT 98; BMI 31.3
[2023-10-11 07:15] LABS: Glucose, Whole Blood 96 mg/dL (60-115)
[2023-10-11] MEDS: Tetracaine HCl/PF 0.5% Oph Sol 4 ML DROPS 1 DROP EYE-BOTH (07:21)
[2023-10-11] MEDS: Cyclopentolate 1 % Ophth Sol 2 ML DRPBTL 1 DROP EYE-BOTH ×3 (07:22→07:32)
[2023-10-11] MEDS: Ketorolac Tromethamine 0.5% Op 10 ML DROPS 1 DROP EYE-BOTH ×3 (07:23→07:33)
[2023-10-11] MEDS: Tropicamide 1 % Ophth Sol 3 ML BTL 1 DROP EYE-BOTH ×3 (07:23→07:32)
[2023-10-11] MEDS: Phenylephrine HCL 2.5% Oph SoL 2 ML BOTTLE 1 DROP EYE-BOTH ×3 (07:23→07:33)
[2023-10-11] MEDS: 0.9 % Sodium Chloride 500 ML 50 ML IV (07:39)
--- NOTE | 2023-10-11 07:59 | P.PCNO_ITS ---
Ophthalmology Procedure Procedure Date of Service: 10/11/23 Ophthalmology Viscoelastic: Healon Duet Dual Pack Pro Ophthalmology Lenses: IOL Acrysof MP - MA60AC (22) Procedure Notes: PREOPERATIVE DIAGNOSIS: Decreased visual acuity right eye secondary to cataract POSTOPERATIVE DIAGNOSIS: Same PROCEDURE: Right cataract extraction with intraocular lens insertion SURGEON: Chadwick Johnson M.D. ANESTHESIA: Topical/MAC ESTIMATED BLOOD LOSS: None COMPLICATIONS: None After obtaining informed consent, the patient was brought to the operating room suite and placed in the supine position. After adequate sedation per anesthesia, topical drops of Tetracaine were given to the right eye. The eye was then prepped and draped in the usual sterile fashion. The operating room microscope was then positioned over the operative eye and a lid speculum placed. A paracentesis was created. Viscoelastic was then instilled into the anterior chamber. A three plane incision was then created temporally, utilizing a 2.85 mm keratome. Capsulotomy forceps were then utilized to create a circular tear capsulotomy. Hydrodissection and hydrodelineation were carried out until adequate mobilization of the nucleus occurred. Phacoemulsification was then utilized to remove the dense central nucl eus followed by removal of the cortical material utilizing the automated aspiration irrigation unit. Viscoelastic was instilled into the posterior capsular bag followed by placement of a posterior chamber intraocular lens without difficulty. The residual Viscoelastic was then removed utilizing the automated IA machine. The wound was checked and found to be watertight. The patient tolerated the procedure well and the lid speculum was removed. Intracameral injection of Vigamox 0.1 mL followed by a subtenon injection of Kenalog-40 0.2 mL were administered. The patient will be seen in the a.m.
--- NOTE | 2023-10-11 07:59 | MHC.SHP ---
Pre-Procedural Eval Section A - 24 Hr Update-Section A only Date of Service: 10/11/23 The patient is an INPATIENT: No Changes since office visit: No Cold of Flu in the past 2 weeks, No New Medical Problems, No Changes in Medication and No Patient answered all questions The patient has been examined within 24 hours of the surgical procedure. The History & Physical has been completed within 30 days and I have reviewed it.: Yes Section B - Complete if H&P > 30 days Chief Complaint: Age-related nuclear cataract, right eye Allergies: Allergies Allergy/AdvReac Type Severity Reaction Status Date / Time celecoxib [From Celebrex] Allergy Severe Rash, Verified 10/11/23 07:43 throat closed codeine Allergy Severe sternal Verified 10/11/23 07:43 pain hydromorphone [From Dilaudid] Allergy Severe Hallucinati Verified 10/11/23 07:43 ons latex Allergy Severe Rash Verified 10/11/23 07:43 Plan Diagnosis/Plan: Unchanged I have reviewed the history and physical and performed a pertinent physical examination on my patient. No changes have occurred unless specified. Time Spent With Patient Time: Total time managing care of this patient today ____ minutes.
[2023-10-11 08:02] VITALS: BP 108/60; PULSE 67; RESP 18; TEMP 36.3; O2SAT 98; BMI 28.7
[2023-10-11 08:43] VITALS: BP 136/50; PULSE 51; RESP 16; TEMP 36.6; O2SAT 97
== END 2023-10-11 08:59 | disposition home or self-care (01) ==
PROVIDERS: PCP Family Medicine; Visit Provider Ophthalmology
PROC: (CPT 66985; principal; 2023-10-11 08:00)
DX: H25.11 Age-related nuclear cataract, right eye (principal); H54.7 Unspecified visual loss; Z96.1 Presence of intraocular lens; D50.9 Iron deficiency anemia, unspecified; I10 Essential (primary) hypertension; E78.00 Pure hypercholesterolemia, unspecified; G30.9 Alzheimer's disease, unspecified; F02.80 Dementia in other diseases classified elsewhere, unspecified severity, without behavioral disturbance, psychotic disturbance, mood disturbance, and anxiety; E11.9 Type 2 diabetes mellitus without complications; M10.9 Gout, unspecified; Z91.81 History of falling; Z79.51 Long term (current) use of inhaled steroids; Z79.82 Long term (current) use of aspirin; Z79.84 Long term (current) use of oral hypoglycemic drugs; Z79.899 Other long term (current) drug therapy; Z98.890 Other specified postprocedural states; Z88.5 Allergy status to narcotic agent; Z88.8 Allergy status to other drugs, medicaments and biological substances; Z91.040 Latex allergy status; Z87.891 Personal history of nicotine dependence
CPT/HCPCS: 66984; 82947; J2250; J3010; J3301; V2630

== ENCOUNTER 2024-06-08 12:33 | Outpatient (AMB) | payer MEDICARE, SELFPAY ==
[2024-06-08 12:37] VITALS: BP 128/76; PULSE 53; O2SAT 98; BMI 29.4
--- NOTE | 2024-06-08 12:37 | MHC.OFFVIS ---
Vital Signs 06/08/24 12:37 Height 5 ft 2 in Weight 161 lb BMI 29.4 BP 128/76 Blood Pressure Location Rt brachial Position Sitting Pulse 53 Pulse Source Pulse Oximeter Pulse Oximetry (%) 98 Oxygen Delivery Method Room Air Intake Visit Reasons: Follow up Dementia Intake Note: Patient following up for dementia med trial donepezil/sertraline Allergies celecoxib [From Celebrex] Allergy (Severe, Verified 06/08/24 12:39) Rash, throat closed codeine Allergy (Severe, Verified 06/08/24 12:39) sternal pain hydromorphone [From Dilaudid] Allergy (Severe, Verified 06/08/24 12:39) Hallucinations latex Allergy (Severe, Verified 06/08/24 12:39) Rash Medication List - Last Reconciled 06/08/24 by Angie Eden MD allopurinol 300 mg PO DAILY aspirin 81 mg PO DAILY atenolol 50 mg PO DAILY cetirizine (Zyrtec) 10 mg PO DAILY cyanocobalamin (vitamin B-12) (Vitamin B-12) 1,000 mcg PO DAILY donepezil 10 mg PO BEDTIME loperamide-simethicone 2-125 mg (Imodium Multi-Symptom Relief) 1 tab PO Q6-8H PRN losartan 50 mg PO DAILY memantine 10 mg PO BID 30 days metformin 0 mg PO sertraline 25 mg PO DAILY simvastatin 20 mg PO BEDTIME HPI Comments Details: 77y/o female comes for f/u of dementia. she is worse as per her She still drives short distances and is managing.No major change since her last visit. ABout 2 years ago her family started noticing short term memory problems. she often repeats herself, confused with dates , always looking for her stuff in her house, misplacing.she is independent in all her ADLs. Her memory is worsening progressively. SHe denies any mood disorder, sleep issues.No falls. she goes to [employer] everyday, does grocery shopping, takes care of the house etc. [facility] Medical History Weight loss Shoulder pain Pain in thoracic spine Osteoarthritis Leg pain, left Depression Iron deficiency anemia Hypercholesteremia COVID-19 Hx of fracture Edema of right lower leg Dementia Anemia Alzheimer's dementia Cognitive disorder Hypokalemia LBBB (left bundle branch block) Arthritis Hyperlipidemia HTN (hypertension) Gout Diabetes Constipation B12 deficiency Surgical History H/O shoulder replacement H/O section Hx of cholecystectomy History of knee replacement H/O: hysterectomy History of colonoscopy Family History Mother Cognitive deficit as late effect of cerebrovascular accident (CVA) Father Diabetes Social History Are you a primary outdoor emergency care technician to a significant other at home: No Do you presently have visiting nurse or other home services: No Alcohol intake: current Alcohol intake frequency: holidays/special occasions only Patient Tobacco Use Status: Former Tobacco user Physical Exam Vital Signs: Last Vital Signs Pulse 53 06/08/24 12:37 BP 128/76 06/08/24 12:37 Pulse Ox 98 06/08/24 12:37 Oxygen Delivery Method Room Air 06/08/24 12:37 BMI result Body Mass Index 29.4 Const General: cooperative and healthy appearing Nutritional Appearance: overweight Eyes Pupils: Equal, round and reactive pupils present Neuro General: tone normal, moves all extremities and no focal motor deficits Cranial nerves: Yes Facial sensation intact/muscles of mastication intact, Yes Equal, round and reactive pupils present, Yes Bilaterally intact EOM present, Yes Nystagmus not present, Yes Normal facial strength present, Yes Midline tongue present and Yes Symmetric palate elevation present Gait exam (Neuro): Antalgic gait present Motor exam (neuro): 5/5 motor strength present throughout and Normal motor muscle tone present throughout Coordination: [id number] test normal Orientation What is the (year) (season) (date) (day) (month)?: season Where are we (state) (county) (town or city) (hospital) (floor)?: state, town or city, hospital/clinic and floor Registration Name of 3 unrelated objects clearly and slowly, then ask patient to repeat all 3 of them. (1st repeat determines score. Make sure they can repeat all three): object 1, object 2 and object 3 Attention & Calculation (CHOOSE ONE) Spell WORLD backwards (DLROW): 5 letters Recall Ask patient to repeat the 3 items from question #3.: object 1 and object 2 Language Show patient a wristwatch & ask what it is. Repeat for pencil.: watch and pencil Ask the patient to repeat the phrase 'No ifs, ands, or buts' after you.: correct Ask the patient to 'take a piece of paper with their right hand' 'fold paper in half' 'place paper on floor': take paper in right hand, fold paper in half and place paper on floor Print the sentence 'CLOSE YOUR EYES' on a piece. If patient actually closes eyes then score.: followed written direction Give patient a blank piece of paper & ask to write a sentence. Score if it contains a noun & verb.: sentence contains subject and verb Ask patient to copy figure of intersecting pentagons exactly. Score if all 10 angles & 2 intersects are included.: all 10 angles present & 2 are intersected Score Score: 24 Assessment & Plan Assessment & Plan (1) Alzheimer's dementia: Code(s): G30.9 - Alzheimer's disease, unspecified; F02.80 - Dementia in other diseases classified elsewhere, unspecified severity, without behavioral disturbance, psychotic disturbance, mood disturbance, and anxiety Category: Medical Qualifiers: Alzheimer's disease onset: late onset Dementia severity: mild Dementia behavioral or psychological symptom: without behavioral, psychotic, or mood disturbance or anxiety Qualified Code(s): G30.1 - Alzheimer's disease with late onset; F02.A0 - Dementia in other diseases classified elsewhere, mild, without behavioral disturbance, psychotic disturbance, mood disturbance, and anxiety Plan Continue aricept 10mg qd Continue Memantine 10mg bid Increase exercise and cognitive activity [facility] ? [facility]: Orders MR head/brain wo con Today F03.90 - Unspecified dementia, unspecified severity, without behavioral disturbance, psychotic disturbance, mood disturbance, and anxiety PET Brain beta amyloid Today F02.80 - Dementia in other diseases classified elsewhere, unspecified severity, without behavioral disturbance, psychotic disturbance, mood disturbance, and anxiety, G30.9 - Alzheimer's disease, unspecified Other Ref Test - Misc Today F02.80 - Dementia in other diseases classified elsewhere, unspecified severity, without behavioral disturbance, psychotic disturbance, mood disturbance, and anxiety, G30.9 - Alzheimer's disease, unspecified Medications: Refilled memantine 10 mg PO BID 30 days 60 tabs 6RF Coding Level of Care Code Est Pt Level 4 (76793) Complex EM visit Add On G2211 Diagnoses Mild late onset Alzheimer's dementia without behavioral disturbance, psychotic disturbance, mood disturbance, or anxiety G30.1; F02.A0 Alzheimer's disease onset: late onset Dementia severity: mild Dementia behavioral or psychological symptom: without behavioral, psychotic, or mood disturbance or anxiety
== END 2024-06-08 13:09 | disposition home or self-care (01) ==
LOC: HO.HSMS 12:33
PROVIDERS: PCP Family Medicine; Visit Provider Psychiatry & Neurology Neurology
DX: G30.1 Alzheimer's disease with late onset (principal); F02.A0 Dementia in other diseases classified elsewhere, mild, without behavioral disturbance, psychotic disturbance, mood disturbance, and anxiety
CPT/HCPCS: 99214; G2211

== ENCOUNTER → 2024-06-08 12:33 | Outpatient (BNVA) | payer MEDICARE, SELFPAY | PROVIDERS: PCP Family Medicine; Visit Provider Psychiatry & Neurology Neurology | DX: G30.1 Alzheimer's disease with late onset (principal); F02.A0 Dementia in other diseases classified elsewhere, mild, without behavioral disturbance, psychotic disturbance, mood disturbance, and anxiety | CPT/HCPCS: 99212 ==

== ENCOUNTER 2024-06-23 09:39 | Outpatient (REF) | payer MEDICARE, SELFPAY ==
--- NOTE | ~2024-06-23 | MR_ITS ---
CLINICAL HISTORY: F03.90 - Unspecified dementia, unspecified severity, without behavioral ... MR Brain without gadolinium Comparison: None Findings: No restricted diffusion. No intra-axial mass or hemorrhage. No midline shift. No hydrocephalus. Vascular flow voids are intact. There is moderate volume loss. There is patchy T2 signal prolongation in the periventricular white matter. The orbits are normal. The sinuses and mastoid air cells are clear. No focal bone lesion. IMPRESSION: No acute findings. Moderate chronic change. This document has been electronically signed by: Ryan Hahn MD on 06/24/2024 10:46:20
--- OUTSIDE RECORDS SUMMARY | 2024-06-23 10:11 | XMS_ITS | Clinical Summary ---
Author Organization [facility] ity Address [id number] [place] [id number] Care Team Providers [employer] Name Role Phone Unavailable Primary Care Provider Unavailabl e Social History Tobacco Use Types Packs/Day Years Used Date Smoking Tobacco: Never Assessed Comments Unknown Sex and Gender Information Value Date Recorded Sex Assigned at Not on file Legal Sex Female 9:54 PM EST Gender Identity Not on file Sexual Orientation Not on file Plan of Treatment Health Maintenance Due Date Last Done Comments DTaP,Tdap,and Td Vaccines (1 - Tdap) 09/01/1962 Pneumococcal Vaccine: 50+ Ye ars (1 of 1 - PCV) 09/01/1993 Zoster Vaccines (1 of 2) 09/01/1993 RSV Immunization Adult Patie nts (1 - 1-dose 75+ series) 09/01/2018 Depression Screening 11/08/2023 Falls Risk Assessment 11/08/2023 Osteoporosis Screening (Bone Density Screening) 11/08/2023 Social Influencers of Health Screening 11/08/2023 COVID-19 Vaccine ( - 2023-2 5 season) 2023 Influenza Vaccine (Season Ended) 2024 HIB Vaccines Aged Out No longer eligi ble based on patient's age to complete this topic HPV Vaccines Aged Out No longer eligi ble based on patient's age to complete this topic Hepatitis A Vaccines Aged Out No long er eligible based on patient's age to complete this topic Hepatitis B Vaccines Aged Out No long er eligible based on patient's age to complete this topic IPV Vaccines Aged Out No longer eligi ble based on patient's age to complete this topic MMR Vaccines Aged Out No longer eligi ble based on patient's age to complete this topic Meningococcal ACWY Vaccine Aged Out N o longer eligible based on patient's age to complete this topic Meningococcal B Vaccine Aged Out No l onger eligible based on patient's age to complete this topic RSV Immunization Patients Un salvatore 20 months Aged Out No longer eligible b ased on patient's age to complete this topic Varicella Vaccines Aged Out No longer eligible based on patient's age to complete this topic
== END 2024-06-23 09:40 | disposition home or self-care (01) ==
LOC: HO.MRI 09:39
PROVIDERS: PCP Family Medicine; Visit Provider Psychiatry & Neurology Neurology
DX: F03.90 Unspecified dementia, unspecified severity, without behavioral disturbance, psychotic disturbance, mood disturbance, and anxiety (principal)
CPT/HCPCS: 70551

== ENCOUNTER → 2024-06-23 09:47 | Outpatient (BNV) | payer MEDICARE, SELFPAY | PROVIDERS: PCP Family Medicine; Visit Provider Radiology Vascular & Interventional Radiology | DX: F03.90 Unspecified dementia, unspecified severity, without behavioral disturbance, psychotic disturbance, mood disturbance, and anxiety (principal) | CPT/HCPCS: 70551 ==

== ENCOUNTER 2024-08-16 13:57 | Outpatient (AMB) | payer MEDICARE, SELFPAY ==
--- NOTE | 2024-08-16 14:14 | A.OFFVIS_ITS ---
Vital Signs 08/16/24 14:15 Height 5 ft 2 in Weight 161 lb 2 oz BMI 29.5 Pulse 60 Pulse Source Pulse Oximeter Pulse Oximetry (%) 97 Oxygen Delivery Method Room Air Intake Visit Reasons: 2 mo follow up Intake Note: patient following up on MRI done 06/24/24 labs done 07/26/24 . PET scan orders faxed to [facility] 08/03 Accompanied by: Spouse Allergies celecoxib [From Celebrex] Allergy (Severe, Verified 08/16/24 14:19) Rash, throat closed codeine Allergy (Severe, Verified 08/16/24 14:19) sternal pain hydromorphone [From Dilaudid] Allergy (Severe, Verified 08/16/24 14:19) Hallucinations latex Allergy (Severe, Verified 08/16/24 14:19) Rash HPI Comments Details: 78y/o female comes for f/u of dementia. She is worse as per her Reuben who relays history. She still drives short distances and is managing.No major change since her last visit. ABout 2 years ago her family started noticing short term memory problems. she often repeats herself, confused with dates , always looking for her stuff in her house, misplacing.she is independent in all her ADLs. Daughter goes to [facility] with her on Tuesdays, she cleans the house, sometimes cooks, she is able to shower, dress herself. Her memory is worsening progressively. SHe denies any mood disorder, sleep issues. No falls. She goes to [employer] everyday, does grocery shopping, takes care of the house etc. Repeatedly asks the same question, needs constant redirection. Unable to complete MMSE today. [facility] Medical History Weight loss Shoulder pain Pain in thoracic spine Osteoarthritis Leg pain, left Depression Iron deficiency anemia Hypercholesteremia COVID-19 Hx of fracture Edema of right lower leg Dementia Anemia Alzheimer's dementia Cognitive disorder Hypokalemia LBBB (left bundle branch block) Arthritis Hyperlipidemia HTN (hypertension) Gout Diabetes Constipation B12 deficiency Surgical History H/O shoulder replacement H/O section Hx of cholecystectomy History of knee replacement H/O: hysterectomy History of colonoscopy Family History Mother Cognitive deficit as late effect of cerebrovascular accident (CVA) Father Diabetes Social History Are you a primary rn coronary care unit to a significant other at home: No Do you presently have visiting nurse or other home services: No Alcohol intake: current Alcohol intake frequency: holidays/special occasions only Patient Tobacco Use Status: Former Tobacco user Physical Exam Vital Signs: Last Vital Signs Pulse 60 08/16/24 14:15 Pulse Ox 97 08/16/24 14:15 Oxygen Delivery Method Room Air 08/16/24 14:15 BMI result Body Mass Index 29.5 Const General: cooperative and healthy appearing Nutritional Appearance: overweight Orientation/consciousness: patient oriented x3 Eyes Pupils: Equal, round and reactive pupils present Neuro General: patient oriented x3, tone normal and moves all extremities Cranial nerves: Yes Facial sensation intact/muscles of mastication intact, Yes Equal, round and reactive pupils present, Yes Bilaterally intact EOM present, Yes Nystagmus not present, Yes Normal facial strength present, Yes Midline tongue present, Yes Symmetric palate elevation present, Yes Ability to bilaterally rotate head present and Yes Ability to bilaterally elevate shoulders present Gait exam (Neuro): Normal gait present and Antalgic gait present Psych Appearance: grossly normal Attitude: cooperative Thought process: Normal thought process present Thought content: Normal thought content present Orientation What is the (year) (season) (date) (day) (month)?: season and month Where are we (state) (county) (town or city) (hospital) (floor)?: state, town or city and floor Registration Name of 3 unrelated objects clearly and slowly, then ask patient to repeat all 3 of them. (1st repeat determines score. Make sure they can repeat all three): object 1, object 2 and object 3 Attention & Calculation (CHOOSE ONE) Spell WORLD backwards (DLROW): 4 letters Score Score: 12 Results Reviewed Results Reviewed: Findings: No restricted diffusion. No intra-axial mass or hemorrhage. No midline shift. No hydrocephalus. Vascular flow voids are intact. There is moderate volume loss. There is patchy T2 signal prolongation in the periventricular white matter. The orbits are normal. The sinuses and mastoid air cells are clear. No focal bone lesion. Assessment & Plan Assessment & Plan (1) Alzheimer's dementia: Code(s): G30.9 - Alzheimer's disease, unspecified; F02.80 - Dementia in other diseases classified elsewhere, unspecified severity, without behavioral disturbance, psychotic disturbance, mood disturbance, and anxiety Category: Medical Qualifiers: Alzheimer's disease onset: late onset Dementia behavioral or psychological symptom: without behavioral, psychotic, or mood disturbance or anxiety Dementia severity: mild Qualified Code(s): G30.1 - Alzheimer's disease with late onset; F02.A0 - Dementia in other diseases classified elsewhere, mild, without behavioral disturbance, psychotic disturbance, mood disturbance, and anxiety Plan Continue aricept 10mg qd Continue Memantine 10mg bid Increase exercise and cognitive activity- social activity, puzzles, walking daily and optimize sleep. Amyloid PET ? Consider leqembi? MRI brain Reviwed with patient moderate volume loss with periventricular T2 Labs APO E4 testing to r/o mutation of gene, reviewed B12, Folate, MMA and Homocysteine, TSH. Orders: Orders Other Ref Test - [facility] F02.80 - Dementia in other diseases classified elsewhere, unspecified severity, without behavioral disturbance, psychotic disturbance, mood disturbance, and anxiety, G30.9 - Alzheimer's disease, unspecified Medications: Refilled memantine 10 mg PO BID 30 days 60 tabs 6RF donepezil 10 mg PO BEDTIME 90 tabs 6RF Patient Instructions: Sleep Hygiene provided: set a scheduled bedtime and wake time to help regulate the circadian rhythm and balance the release of pituitary hormones. Sleep in a dark room, temperatures below 68 degrees, and no devices n bed. Limit caffeinated products 6 hours prior to bed, and limit fluids 2-4 hours prior to bed. Gentle night yoga, diffusing essential oils, and playing soft music can be relaxing. Coding Level of Care Code Est Pt Level 4 (19443) Complex EM visit Add On G2211 Diagnoses Mild late onset Alzheimer's dementia without behavioral disturbance, psychotic disturbance, mood disturbance, or anxiety G30.1; F02.A0 Alzheimer's disease onset: late onset Dementia behavioral or psychological symptom: without behavioral, psychotic, or mood disturbance or anxiety Dementia severity: mild Time Spent (min) 30 Comment not improving
[2024-08-16 14:15] VITALS: PULSE 60; O2SAT 97; BMI 29.5
== END 2024-08-16 15:10 | disposition home or self-care (01) ==
PROVIDERS: PCP Family Medicine; Visit Provider Physician Assistant Medical
DX: G30.1 Alzheimer's disease with late onset (principal); F02.A0 Dementia in other diseases classified elsewhere, mild, without behavioral disturbance, psychotic disturbance, mood disturbance, and anxiety
CPT/HCPCS: 99214; G2211

== ENCOUNTER → 2024-08-16 13:57 | Outpatient (BNVA) | payer MEDICARE, SELFPAY | PROVIDERS: PCP Family Medicine; Visit Provider Psychiatry & Neurology Neurology | DX: G30.1 Alzheimer's disease with late onset (principal); F02.A0 Dementia in other diseases classified elsewhere, mild, without behavioral disturbance, psychotic disturbance, mood disturbance, and anxiety | CPT/HCPCS: 99212 ==

== ENCOUNTER 2024-11-17 14:00 | Outpatient (AMB) | payer MEDICARE, SELFPAY ==
--- OUTSIDE RECORDS SUMMARY | 2024-11-15 23:59 | XMS_ITS | Continuity of Care Document ---
Author Organization [facility] Adult Address [address] [place] [id number]- Care Team Providers Care Morgue Technician Name Role Phone Yury RENDON, Berna Mohan Primary Care Physicia n [id number](s[facility] 10/16/24 - 11/15/24 [facility] [address] [place] [id number]- Encounter Type: Triage Allergies, Adverse Reactions, Alerts Substance Criticality Severity Reaction Reaction Severity Status codeine sternal pain Active Dilaudid hallucination Active Celebrex rash, throat closed up Active Latex red rash Active Immunizations Given and Recorded Vaccine Date Status Refusal Reason tetanus-diphtheria toxoids (Td) 11/25/22 Recorded SARS-CoV-2 (COVID-19) mRNA BNT-162b2 vac 12/29/20 Recorded SARS-CoV-2 (COVID-19) mRNA BNT-162b2 vac 05/18/20 Given SARS-CoV-2 (COVID-19) mRNA BNT-162b2 vac 04/27/20 Given influenza virus vaccine, inactivated 11/19/20 Anton rded influenza virus vaccine, inactivated 12/01/19 Anton rded influenza virus vaccine, inactivated 11/20/18 Anton rded tetanus/diphtheria/pertussis, acel(Tdap) 07/04/18 Given zoster vaccine, inactivated 05/05/18 Recorded zoster vaccine, inactivated 01/26/18 Recorded pneumococcal 13-valent vaccine 01/13/15 Recorded pneumococcal 23-valent vaccine 07/13/12 Recorded Medications allopurinol 300 mg oral tablet 1, tablet, By Mouth, Daily, # 90 tablet, Refills 1, Tot. Refills 1, Maintenance, 09/22/24 9:45:00 AMEDT, Route to Pharmacy Electronically, [facility]/pharmacy #[id number], 152.3, cm, 04/05/24 9:50:00 EST, Height,75, kg, 08/31/23 3:57:00 EDT, Dry Weight Start Date: 09/22/24 Status: Ordered Medication Dispense Status: Completed Quantity: 90.0 Unit: tablet Total Allowed Fills: 2 Fills Dispensed: 0 aspirin 81 mg oral delayed release tablet 81 mg, 1, tablet, By Mouth, Daily, # 30 tablet, Refills 0, Maintenance, 12/05/21 1:25:00 PM EDT, Partial fill upon patient request if the prescription is for a schedule II opioid drug. Start Date: 12/05/21 Status: Ordered Medication Dispense Status: Completed Quantity: 30.0 Unit: tablet Total Allowed Fills: 1 Fills Dispensed: 0 atenolol 50 mg oral tablet 1, tablet, By Mouth, Daily, # 90 tablet, Refills 1, Tot. Refills 1, Maintenance, 05/13/24 8:59:00 PM EST, Route to Pharmacy Electronically, [facility]/pharmacy #[id number], 152.3, cm, 04/05/24 9:50:00 EST, Height, 75, kg, 08/31/23 3:57:00 EDT, Dry Weight Start Date: 05/13/24 Status: Ordered Medication Dispense Status: Completed Quantity: 90.0 Unit: tablet Total Allowed Fills: 2 Fills Dispensed: 0 donepezil 10 mg oral tablet 1, tablet, By Mouth, Daily at bedtime, # 90 tablet, Refills 1, Tot. Refills 1, Maintenance, :46:00 PM EDT, Route to Pharmacy Electronically, [facility]/pharmacy #[id number], 152.3, cm, 04/05/24 9:50:00 EST, Height, 75, kg, 08/31/23 3:57:00 EDT, Dry Weight Start Date: 06/03/24 Status: Ordered Medication Dispense Status: Completed Quantity: 90.0 Unit: tablet Total Allowed Fills: 2 Fills Dispensed: 0 Imodium Multi-Symptom Relief 2 mg-125 mg oral tablet 1 tablet, By Mouth, Every 6 hours, PRN for loose stool, # 12 tablet, 0 Refills, Maintenance, 08/11/23 10:25:00 AM EDT, Tablet, [facility]/pharmacy #[id number], Partial fill upon patient request if the prescriptionis for a schedule II opioid drug., 1 tablet By Mouth Every 6 hours,PRN:for loose stool, 152, cm, 08/11/23 9:42:00 EDT, Height, 68, kg, 07/24/23 9:52:00 EDT, Dry Weight Start Date: 08/11/23 Status: Ordered Medication Dispense Status: Completed Quantity: 12.0 Unit: tablet Total Allowed Fills: 1 Fills Dispensed: 0 Indications: Diarrhea, unspecified; Iron 100 Plus By Mouth, Daily, 0 Refills, Maintenance, 01/13/24 4:26:00 PM EDT, Partial fill upon patient requestif the prescription is for a schedule II opioid drug. Start Date: 01/13/24 Status: Ordered Medication Dispense Status: Completed Total Allowed Fills: 1 Fills Dispensed: 0 losartan 50 mg oral tablet 1 tablet, By Mouth, Daily, # 90 tablet, 0 Refills, Maintenance, 05/15/24 12:37:00 PM EST, [facility] STORE [id number], 152.3, cm, 04/05/24 9:50:00 EST, Height, 75, kg, 08/31/23 3:57:00 EDT, Dry Weight Start Date: 05/15/24 Status: Ordered Medication Dispense Status: Completed Quantity: 90.0 Unit: tablet Total Allowed Fills: 1 Fills Dispensed: 0 memantine 5 mg oral tablet 2 tablet, By Mouth, Daily, # 180 tablet, 0 Refills, Maintenance, 01/12/23 8:52:00 AM EDT, [id number], 152, cm, 12/27/22 11:50:00 EDT, Height, 79, kg, 12/27/22 11:50:00 EDT, Dry Weight Start Date: 01/12/23 Status: Ordered Medication Dispense Status: Completed Quantity: 180.0 Unit: tablet Total Allowed Fills: 1 Fills Dispensed: 0 metFORMIN 500 mg oral tablet See Instructions, TAKE 1 TABLET BY MOUTH EVERY MORNING AND TAKE 2 TABLETS EVERY EVENING, # 270 tablet, 1 Refills, Maintenance, 06/03/24 2:46:00 PM EDT, [facility]/pharmacy #[id number], 152.3, cm, 04/05/24 9:50:00 EST, Height, 75, kg, 08/31/23 3:57:00 EDT, Dry Weight Start Date: 06/03/24 Status: Ordered Medication Dispense Status: Completed Quantity: 270.0 Unit: tablet Total Allowed Fills: 2 Fills Dispensed: 0 simvastatin 20 mg oral tablet 1, tablet, By Mouth, Daily at bedtime, # 90 tablet, Refills 1, Tot. Refills 1, Maintenance, 12/11/2411:09:00 PM EDT, Route to Pharmacy Electronically, [facility]/pharmacy #[id number], 152.3, cm, 11/08/23 11:33:00EDT, Height, 75, kg, 08/31/23 3:57:00 EDT, Dry Weight Start Date: 12/11/23 Status: Ordered Medication Dispense Status: Completed Quantity: 90.0 Unit: tablet Total Allowed Fills: 2 Fills Dispensed: 0 Vitamin B12 1000 mcg oral tablet 1 tablet = 1,000 mcg, By Mouth, Daily, # 30 tablet, 0 Refills, Maintenance, 12/05/21 1:24:00 PM EDT,Tablet, Partial fill upon patient request if the prescription is for a schedule II opioid drug. Start Date: 12/05/21 Status: Ordered Medication Dispense Status: Completed Quantity: 30.0 Unit: tablet Total Allowed Fills: 1 Fills Dispensed: 0 ZyrTEC 10 mg oral tablet 1 tablet = 10 mg, By Mouth, Daily, # 30 tablet, 0 Refills, Maintenance, 12/05/21 1:25:00 PM EDT, Tablet, Partial fill upon patient request if the prescription is for a schedule II opioid drug. Start Date: 12/05/21 Status: Ordered Medication Dispense Status: Completed Quantity: 30.0 Unit: tablet Total Allowed Fills: 1 Fills Dispensed: 0 Problem List Condition Confirmation Course Effective Dates Status Health Status Informant Dementia in Alzheimer's disease Confirmed Active Anemia Confirmed Active Constipation Confirmed Active Gout Confirmed Active History of COVID-19 Confirmed Active Hypercholesterolemia Confirmed Active Hypertension Confirmed Active Iron deficiency anemia Confirmed Active LBBB (left bundle branch block) Confirmed Active Lower back pain Confirmed Active Major depression, single episode Confirmed Active B12 deficiency anemia Confirmed Active Obese class I Confirmed Active Osteoarthritis Confirmed Active Leg pain, left Confirmed Active Pain in thoracic spine Confirmed Active Shoulder pain, right Confirmed Active Wellness examination Confirmed Active Medicare annual wellness visit, subsequent Confirmed Active Diabetes type 2, controlled Confirmed Active Weight loss Confirmed Active Social History Social History Type Response Smoking Status Former smoker, quit more than 30 days ago entered on: 06/26/20 Sex Sex Representation Female (finding) Patient Care team information Care Team Personnel Name: Galilea Aggarwal RN Position: [facility] RN Member Role: Primary Care Nurse Name: Janna Patten MA Position: [facility] MA Member Role: Lifetime Consulting Physician Name: Angelia Layne Position: [facility] Outreach Member Role: Lifetime Consulting Physician Name: Rebekah Hartman RN Position: [facility] RN Member Role: Primary Care Nurse Name: Yury RENDON, Berna Mohan Position: [facility] PCO Associate Professional Member Role: PCP Address: [address] [place] [address] Telecom: Name: Magnolia Wills RN Position: [facility] SN RN Member Role: Primary Care Nurse Care Team Related Persons Name: ESSIE PARISI Name: MASTER MARIE Insurance Providers Guarantor name: GHADA AILIN Health Plan Information #: 1 Payer: MEDICARE B Payer Identifier: AUDELIA Member Number: [id number] Group Number: [id number] Subscriber Identifier: NA Relationship to Subscriber: self Coverage Type: NA Coverage Verification Date: NA Telecom: NA Address: Health Plan Information #: 2 Payer: MEDEX SECONDARY ONLY Payer Identifier: AUDELIA Member Number: [id number] Group Number: [id number] Subscriber Identifier: NA Relationship to Subscriber: self Coverage Type: Medicare Other Coverage Verification Date: NA Telecom: NA Address:
[2024-11-17 14:05] VITALS: BP 116/72; PULSE 62; O2SAT 98; BMI 28.4
--- NOTE | 2024-11-17 14:05 | A.OFFVIS_ITS ---
Vital Signs 11/17/24 14:05 Height 5 ft 2 in Weight 155 lb 8 oz BMI 28.4 BP 116/72 Blood Pressure Location Rt brachial Position Sitting Pulse 62 Pulse Source Pulse Oximeter Pulse Oximetry (%) 98 Oxygen Delivery Method Room Air Intake Visit Reasons: 3m follow up Intake Note: Patient presents follow up Alzheimer's. Lobo in chart. Accompanied by: Spouse Allergies celecoxib (From Celebrex) Allergy (Severe, Verified 11/17/24 14:10) Rash, throat closed codeine Allergy (Severe, Verified 11/17/24 14:10) sternal pain hydromorphone (From Dilaudid) Allergy (Severe, Verified 11/17/24 14:10) Hallucinations latex Allergy (Severe, Verified 11/17/24 14:10) Rash HPI Comments Details: 79y/o female with Alzheimer's dementia presents for a follow up appt. Her Reuben helps with history today. She is progressively getting worse, she can not remember her grandchildren's names, her has a difficult time managing her. Their daughter comes over once a week to play bingo with them. She goes to dinner and recounts her favorite places to dine. Her mood is usually well mannered. Her diet is good. She sleeps through the night. No major changes since her last visit. About 2 years ago her family started noticing short term memory problems. She often repeats herself, gets confused with dates, always looking for her stuff in her house, misplaces her pocket book, needs constant redirection and visual cues to complete tasks.. She is independent in all her ADLs. She cleans the house and cooks sometimes. She goes to [employer] every Wednesday, goes grocery shopping, and drives locally, though her does not want her driving anymore. Reuben is not interested in any plaque modifying therapies. She takes all her medications Memantine 10mg po BID, Donepezil 10mg po BID. MRI reviewed with Reuben and Tika today. [facility] Medical History Weight loss Shoulder pain Pain in thoracic spine Osteoarthritis Leg pain, left Depression Iron deficiency anemia Hypercholesteremia COVID-19 Hx of fracture Edema of right lower leg Dementia Anemia Alzheimer's dementia Cognitive disorder Hypokalemia LBBB (left bundle branch block) Arthritis Hyperlipidemia HTN (hypertension) Gout Diabetes Constipation B12 deficiency Surgical History H/O shoulder replacement H/O section Hx of cholecystectomy History of knee replacement H/O: hysterectomy History of colonoscopy Family History Mother Cognitive deficit as late effect of cerebrovascular accident (CVA) Father Diabetes Social History Are you a primary pulmonary care nurse to a significant other at home: No Do you presently have visiting nurse or other home services: No Alcohol intake: current Alcohol intake frequency: holidays/special occasions only Patient Tobacco Use Status: Former Tobacco user Physical Exam Vital Signs: Last Vital Signs Pulse 62 11/17/24 14:05 BP 116/72 11/17/24 14:05 Pulse Ox 98 11/17/24 14:05 Oxygen Delivery Method Room Air 11/17/24 14:05 BMI result Body Mass Index 28.4 Const General: cooperative and healthy appearing Nutritional Appearance: overweight Orientation/consciousness: patient oriented x3 Eyes Pupils: Equal, round and reactive pupils present Neuro General: patient oriented x3, tone normal and moves all extremities Cranial nerves: Yes Facial sensation intact/muscles of mastication intact, Yes Equal, round and reactive pupils present, Yes Bilaterally intact EOM present, Yes Nystagmus not present, Yes Normal facial strength present, Yes Midline tongue present, Yes Symmetric palate elevation present, Yes Ability to bilaterally rotate head present and Yes Ability to bilaterally elevate shoulders present Gait exam (Neuro): Normal gait present and Antalgic gait present Psych Appearance: grossly normal Speech and movement: Normal speech and movement present Attitude: cooperative Thought process: Normal thought process present Thought content: Normal thought content present Insight: Poor insight present (Psych) Judgement: Poor judgement present (Psych) Results Reviewed Results Reviewed: MRI 06/2024 There is moderate volume loss. There is patchy T2 signal prolongation in the periventricular white matter. Assessment & Plan Assessment & Plan (1) Alzheimer's dementia: Code(s): G30.9 - Alzheimer's disease, unspecified; F02.80 - Dementia in other diseases classified elsewhere, unspecified severity, without behavioral disturbance, psychotic disturbance, mood disturbance, and anxiety Category: Medical Qualifiers: Alzheimer's disease onset: late onset Dementia severity: mild Dementia behavioral or psychological symptom: without behavioral, psychotic, or mood disturbance or anxiety Qualified Code(s): G30.1 - Alzheimer's disease with late onset; F02.A0 - Dementia in other diseases classified elsewhere, mild, without behavioral disturbance, psychotic disturbance, mood disturbance, and anxiety Plan Cognitive decline / Alzheimer's dementia Continue aricept 10mg qd Continue Memantine 10mg bid Increase exercise and cognitive activity- social activity, puzzles, walking daily and optimize sleep. Amyloid PET ? Consider leqembi? Declines today, will discuss with daughter and son. 2024 MRI brain reviewed with pt. There is moderate volume loss. There is patchy T2 signal prolongation in the periventricular white matter. Continue b12 daily, f/u in 3 months or sooner. Patient Instructions: Sleep Hygiene provided: set a scheduled bedtime and wake time to help regulate the circadian rhythm and balance the release of pituitary hormones. Sleep in a dark room, temperatures below 68 degrees, and no devices n bed. Limit caffeinated products 6 hours prior to bed, and limit fluids 2-4 hours prior to bed. Gentle night yoga, diffusing essential oils, and playing soft music can be relaxing. Pt. complains of yeast infection today, provided education, re: taking all medication as prescribed, keeping area dry, using epsom salt baths to soak for itching, and yeast medication provided to pt. for discomfort, avoid sugary snacks, may eat yogurt daily and take probiotics and f/u with pcp use zinc gold salcedo power on the lower abdomen area and in the folds of the skin (intertrigo). Coding Level of Care Code Est Pt Level 4 (92997) Diagnoses Mild late onset Alzheimer's dementia without behavioral disturbance, psychotic disturbance, mood disturbance, or anxiety G30.1; F02.A0 Alzheimer's disease onset: late onset Dementia severity: mild Dementia behavioral or psychological symptom: without behavioral, psychotic, or mood disturbance or anxiety
--- OUTSIDE RECORDS SUMMARY | 2024-11-17 14:35 | XMS_ITS | Clinical Summary ---
Author Organization [address] [facility] Address [address] [place] [address] Phone Care Team Providers Care Quality And Reliability Engineer Name Role Phone Hank Ibarra DO Primary Care Provider [phone] Allergies Active Allergy Reactions Criticality Noted Date Comments Celecoxib 10/12/2024 Other Reaction(s): rash, throat closed up Codeine 10/12/2024 Other Reaction(s): sternal pain Latex 10/12/2024 Other Reaction(s): red rash Medications metFORMIN (GLUCOPHAGE) 500 mg tablet See Instructions , TAKE 1 TABLET BY MOUTH EVERY MORNING AND TAKE 2 TABLETS EVERY EVENING, # 270 tablet, 1 Refills, Maintenance, 06/03/24 2:46:00 PM EDT, [facility]/pharmacy #[id number], 152.3, cm, 04/05/24 9:50:00 EST, Height, 75, kg, 08/31/23 3:57:00 EDT, Dry Weight 09/17/2023 Active losartan (COZAAR) 50 mg tablet Take 1 tablet (50 mg total) by mouth 1 (one) time each day. Active aspirin 81 mg EC tablet Take 1 tablet (81 mg total) by mouth. 12/05/2021 Active atenoloL (TENORMIN) 50 mg tablet Take 1 tablet (50 mg total) by mouth 1 (one) time each day. Active allopurinoL (ZYLOPRIM) 300 mg tablet Take 1 tablet (300 mg total) by mouth 1 (one) time each day. Active sertraline (ZOLOFT) 25 mg tablet Take 1 tablet (25 mg total) by mouth 1 (one) time each day. 05/02/2024 Active donepeziL (ARICEPT) 10 mg tablet Take 1 tablet (10 mg total) by mouth at bedtime. Active memantine (NAMENDA) 10 mg tablet 10/08/2024 Active simvastatin (ZOCOR) 20 mg tablet Take 1 tablet (20 mg total) by mouth at bedtime. Active Active Problems Problem Noted Date Diagnosed Date Alzheimer's disease ([facility] V24, [facility] V28) 0 10/12/2024 Anemia 10/12/2024 Assessment & Plan (10/12/2024 5:08 PM EDT): Reviewed possible workup for anemia in the GI setting to include colonoscopy/EGD and capsule study. She denies GI symptoms. I am going to my messages Reviewed indications for these procedures-rule out malignancy, ulceration, AVMs, or other source of anemia. Patient has office visit follow-up with new primary care to establish care in November. She states she would like to wait and speak with primary care before considering a possible GI workup. Gout 10/12/2024 Hypercholesterolemia 10/12/2024 Hypertension 10/12/2024 Iron deficiency anemia 10/12/2024 LBBB (left bundle branch block) 10/12/2024 Lower back pain 10/12/2024 Major depression, single episode 10/12/2024 Osteoarthritis 10/12/2024 Type 2 diabetes mellitus ([facility] V24, [facility] V 28) 10/12/2024 Encounters Date Type Department Care Team Description 10/12/2024 3:10 PM EDT Office Visit Gastroenterology - [address] [place] [phone] Anaid Angulo PA Anemia, unspecified type (Primary Dx) from Last 3 Months Surgical History Surgery Date Site/Laterality Comments HYSTERECTOMY TOTAL KNEE ARTHROPLASTY Bilateral SECTION TOTAL SHOULDER ARTHROPLASTY COLONOSCOPY 02/12/2010 - 03/14/2010 COLONOSCOPY 04/15/2002 - 05/12/2002 Family History Medical History Relation Name Comments Colon cancer Maternal Grandmother Relation Name Status Comments Maternal Grandmother Social History Tobacco Use Types Packs/Day Years Used Date Smoking Tobacco: Former Cigarettes Smokeless Tobacco: Former Tobacco Cessation:Counseling Given: Not Answered Alcohol Use Standard Drinks/Week Comments Yes 0 (1 standard drink = 0.6 oz pur e alcohol) rare Comments Unknown Sex and Gender Information Value Date Recorded Sex Assigned at Not on file Legal Sex Female 9:54 PM EST Gender Identity Not on file Sexual Orientation Not on file Obstetrics History Last Filed Vital Signs Vital Sign Reading Time Taken Comments Blood Pressure - - Pulse - - Temperature - - Respiratory Rate - - Oxygen Saturation - - Inhaled Oxygen Concentration - - Weight 70.3 kg (155 lb) 10/12/2024 3:10 PM EDT Height 152.4 cm (5') 10/12/2024 3:10 PM EDT Body Mass Index 30.27 10/12/2024 3:10 PM EDT Plan of Treatment Health Maintenance Due Date Last Done Comments Diabetes: Annual GFR (Glomerular Filtration Rate) 1943 Diabetes: Annual Foot Exam 09/01/1953 Diabetes: Annual Retina Eye Exam 09/01/1953 RSV Immunization Adult Patients (1 - 1-dose 75+ series) 09/01/2018 Cholesterol Screening (Lipid Panel) 11/08/2023 Falls Risk Assessment 11/08/2023 Medicare Annual Wellness Visit 11/08/2023 Osteoporosis Screening (Bone Density Screening) 11/08/2023 Social Influencers of Health Screening 11/08/2023 Depression Screening 03/15/2024 Diabetes: Annual Urine Albumin-Creatinine Ratio (uACR) 07/27/2024 Diabetes: Blood Sugar Contro l Test (HGBA1C) 07/27/2024 Hypertension/CHF/CAD Annual BMP Blood Test 07/27/2024 COVID-19 Vaccine (4 - 2024-2 6 season) 2024 12/29/2020, 05/18/2020, 04/27/2020 Influenza Vaccine (#1) 2024 , 12/01/2019, 11/20/2018 DTaP,Tdap,and Td Vaccines (3 - Td or Tdap) 11/25/2032 11/25/2022, 07/04/2018 Pneumococcal Vaccine: 50+ Years Completed 01/13/2015, 07/13/2012 Zoster Vaccines Completed 05/05/2018, 01/26/2018 HIB Vaccines Aged Out No longer eligi [...] to complete this topic RSV Immunization Patients Under 20 months Aged Out No longer eligible b ased on patient's age to complete this topic Varicella Vaccines Aged Out No longer eligible based on patient's age to complete this topic Procedures Procedure Name Priority Date/Time Associated Diagnosis Comments EXTERNAL COLONOSCOPY REPORT Routine 09/06/2024 9:09 AM EDT from Last 3 Months Results * External Colonoscopy Report (09/06/2024 9:09 AM EDT) Anatomical Region Laterality Modality Endoscopy Historical Provider GI~PROCEDURE ORDERABLES F inal Result from Last 3 Months Insurance MEDICARE [facility] Care Teams Quality And Reliability Engineer Relationship Specialty Start Date End Date Hank Ibarra DO [address] [place] [address] PCP - General Family Medicine 08/01/24
== END 2024-11-17 14:59 | disposition home or self-care (01) ==
LOC: HO.HSMS 14:00
PROVIDERS: PCP Family Medicine; Visit Provider Physician Assistant Medical
DX: G30.1 Alzheimer's disease with late onset (principal); F02.A0 Dementia in other diseases classified elsewhere, mild, without behavioral disturbance, psychotic disturbance, mood disturbance, and anxiety
CPT/HCPCS: 99214

== ENCOUNTER → 2024-11-17 14:00 | Outpatient (BNVA) | payer MEDICARE, SELFPAY | PROVIDERS: PCP Family Medicine; Visit Provider Physician Assistant Medical | DX: G30.1 Alzheimer's disease with late onset (principal); F02.A0 Dementia in other diseases classified elsewhere, mild, without behavioral disturbance, psychotic disturbance, mood disturbance, and anxiety; Z87.891 Personal history of nicotine dependence | CPT/HCPCS: 99212 ==